=== PATIENT | female | born 1995 | race Caucasian/White ===

== ENCOUNTER 2024-09-29 05:48 | Day surgery (SDC) | payer OTHER ==
[2024-09-27 11:45] LABS: BASO % 0.3 % (0.1-1.2); EOS # 0.12 (0.04-0.54); EOS % 1.1 % (0.7-7.0); LYMPH # 2.34 (1.18-3.74); LYMPH % 20.5 % (19.3-53.1); MEAN PLATELET VOLUME 9.40 fl (9.4-12.4); MONO # 0.46 (0.24-0.82); MONO % 4.0 % (4.7-12.5); NEUT # 8.41 (1.56-6.13); NEUT % 73.8 % (34.0-71.1); RED CELL DISTRIBUTION WIDTH 13.9 % (11.6-14.4)
[2024-09-27 12:11] LABS: INR 1.05
[2024-09-27 12:27] LABS: ALT/SGPT 16.0 U/L (12-78); AST/SGOT 9.0 U/L (15-37); BILIRUBIN TOTAL 0.31 mg/dL (0.3-1.2); BUN CREA RATIO 20.0 (7.0-25.0); CREATININE SERUM 0.35 mg/dL (0.55-1.02); GFR 221.72; GLOBULINA 3.6 G/DL (2.4-3.5); GLUCOSE FASTING 75.0 mg/dL (65-100); OSMOLALITY SERUM 280.0 MOSM/KG (275-295); TSH 1.94 uIU/mL (0.358-3.74)
[~2024-09-29 05:48] MED LIST: SYNTHROID75 MCG PO
[2024-09-29] MEDS ORDERED: POVIDONE-IODINE 118 ML BOTT TOP ONE (07:15)
[2024-09-29] MEDS ORDERED: CITRIC ACID/SODIUM CITRATE 30 ML BLIST.PACK PO ONE (07:15)
[2024-09-29 15:00] VITALS: BP 131/70; O2SAT 100
== END 2024-09-29 13:15 | disposition home or self-care (01) ==
LOC: CIR.AMB 05:48
PROVIDERS: ATTEND Obstetrics & Gynecology Maternal & Fetal Medicine
DX: O34.32 Maternal care for cervical incompetence, second trimester (principal); N84.1 Polyp of cervix uteri

== ENCOUNTER 2025-01-10 17:32 | Inpatient (IN) | payer OTHER ==
[~2025-01-10] VITALS: Ht 170.2 cm; Wt 93.9 kg
[~2025-01-10 17:32] MED LIST changes: +PRENATABS RX T1 EACH PO
[2025-01-10 17:35] VITALS: BP 118/75
[2025-01-10] MEDS ORDERED: NIFEDIPINE 30 MG TAB.SA.OSM PO ONE (18:02)
[2025-01-10] MEDS ORDERED: BETAMETHASONE ACETATE,SOD PHOS 30 MG/5 ML ML ONE (18:02)
[2025-01-10] MEDS ORDERED: CEFOXITIN SODIUM 2,000 MG VIAL IV ONE (18:03)
[2025-01-10] MEDS ORDERED: BETAMETHASONE ACETATE,SOD PHOS 30 MG/5 ML ML IM ONE (18:17)
[2025-01-10] MEDS ORDERED: NIFEDIPINE20 MG PO (18:37)
[2025-01-10] MEDS ORDERED: ENDOMETRIN100 MG VAG (18:38)
[2025-01-10] MEDS ORDERED: CEFOXITIN SODIUM 2,000 MG VIAL IV SCH (18:40)
[2025-01-10] MEDS ORDERED: NIFEDIPINE 30 MG TAB.SA.OSM PO SCH (18:41)
[2025-01-10 19:16] LABS: BASO % 0.2 % (0.1-1.2); EOS # 0.20 (0.04-0.54); EOS % 1.5 % (0.7-7.0); LYMPH # 2.53 (1.18-3.74); LYMPH % 19.4 % (19.3-53.1); MEAN PLATELET VOLUME 10.20 fl (9.4-12.4); MONO # 0.55 (0.24-0.82); MONO % 4.2 % (4.7-12.5); NEUT # 9.70 (1.56-6.13); NEUT % 74.4 % (34.0-71.1); RED CELL DISTRIBUTION WIDTH 14.0 % (11.6-14.4)
[2025-01-10 19:35] LABS: INR 0.99
[2025-01-10 19:49] LABS: ALT/SGPT 19.0 U/L (12-78); AST/SGOT 18.0 U/L (15-37); BILIRUBIN TOTAL 0.24 mg/dL (0.3-1.2); BUN CREA RATIO 22.0 (7.0-25.0); CREATININE SERUM 0.36 mg/dL (0.55-1.02); GFR 214.63; GLOBULINA 3.8 G/DL (2.4-3.5); GLUCOSE FASTING 82.0 mg/dL (65-100); OSMOLALITY SERUM 277.0 MOSM/KG (275-295); TSH 2.2 uIU/mL (0.358-3.74)
[2025-01-10 20:18] VITALS: BP 125/77
[2025-01-10 23:19] VITALS: BP 107/67
[2025-01-11 03:22] VITALS: BP 108/69
[2025-01-11] MEDS ORDERED: NIFEDIPINE 30 MG TAB.SA.OSM PO SCH (05:00)
[2025-01-11] MEDS ORDERED: LEVOTHYROXINE SODIUM 75 MCG TABLET PO SCH (06:00)
[2025-01-11 07:14] VITALS: BP 112/71
[2025-01-11] MEDS ORDERED: CEFOXITIN SODIUM 2,000 MG VIAL IV ONE ×3 (07:17→23:52)
[2025-01-11] MEDS ORDERED: MAGNESIUM SULFATE IN WATER 500 ML IV SCH (11:00)
[2025-01-11] MEDS ORDERED: MAGNESIUM SULFATE IN WATER 100 ML IV NR (11:00)
[2025-01-11 11:23] VITALS: BP 113/68
[2025-01-11 15:26] VITALS: BP 107/67; O2SAT 98
[2025-01-11] MEDS ORDERED: BETAMETHASONE ACETATE,SOD PHOS 30 MG/5 ML ML IM NR (18:00)
[2025-01-11] MEDS ORDERED: BETAMETHASONE ACETATE,SOD PHOS 30 MG/5 ML ML ONE (18:08)
[2025-01-11] MEDS ORDERED: PATIENTS OWN MEDICATION (MEDICAMENTO EN PISO NEVERA) VAG SCH (21:00)
[2025-01-11 21:20] VITALS: BP 109/69; O2SAT 99
[2025-01-11 23:42] VITALS: BP 114/70
[2025-01-12 03:49] VITALS: BP 105/68
[2025-01-12] MEDS ORDERED: LEVOTHYROXINE SODIUM 75 MCG TABLET PO ONE (05:42)
[2025-01-12 07:02] VITALS: BP 109/68; O2SAT 100
[2025-01-12] MEDS ORDERED: CEFOXITIN SODIUM 2,000 MG VIAL IV ONE (08:40)
[2025-01-12] MEDS ORDERED: NIFEDIPINE 60 MG TAB.SA.OSM PO NR (13:00)
[2025-01-12 13:30] VITALS: BP 120/72
[2025-01-12 16:00] VITALS: BP 101/61
[2025-01-12] MEDS ORDERED: NIFEDIPINE 60 MG TAB.SA.OSM PO SCH (21:00)
[2025-01-13 01:23] VITALS: BP 90/60
[2025-01-13 08:00] VITALS: BP 116/67
[2025-01-13] MEDS ORDERED: DOCUSATE SODIUM 100MG CAP PO STA (15:25)
[2025-01-13 15:57] VITALS: BP 95/54
[2025-01-13] MEDS ORDERED: ENOXAPARIN SODIUM 40 MG/0.4 ML SYRINGE SUBCUTANEO STA (16:21)
[2025-01-14] VITALS: BP 104/66
[2025-01-14] MEDS ORDERED: DOCUSATE SODIUM 100MG CAP PO SCH (09:00)
[2025-01-14 09:29] VITALS: BP 112/69
[2025-01-14] MEDS ORDERED: ENOXAPARIN SODIUM 40 MG/0.4 ML SYRINGE SUBCUTANEO SCH (17:00)
[2025-01-14 17:19] VITALS: BP 113/70
[2025-01-14 23:56] VITALS: BP 96/60
[2025-01-15 09:00] VITALS: BP 115/73
[2025-01-15 17:30] VITALS: BP 119/77
[2025-01-16] VITALS: BP 108/67
[2025-01-16 08:53] VITALS: BP 106/68
[2025-01-16 15:00] VITALS: BP 115/72
[2025-01-17] VITALS: BP 109/67
[2025-01-17 08:26] VITALS: BP 104/69
[2025-01-17 16:24] VITALS: BP 118/76
[2025-01-18 00:04] VITALS: BP 93/54
[2025-01-18 07:25] VITALS: BP 106/69
[2025-01-18] MEDS ORDERED: LACTULOSE 20 G/30 ML BLIST.PACK PO NR (10:00)
[2025-01-18] MEDS ORDERED: MAGNESIUM HYDROXIDE 30 ML BLIST.PACK PO NR (10:00)
[2025-01-18] MEDS ORDERED: MINERAL OIL 30 ML BLIST.PACK PO NR (10:00)
[2025-01-18 16:00] VITALS: BP 114/71
[2025-01-19 01:15] VITALS: BP 92/60
[2025-01-19 08:00] VITALS: BP 100/64
[2025-01-19] MEDS ORDERED: POLYETHYLENE GLYCOL 3350 17 GM BLIST.PACK PO SCH (09:00)
[2025-01-19 16:34] VITALS: BP 90/65
[2025-01-19] MEDS ORDERED: TERBUTALINE SULFATE 1 MG/ML AMPUL ONE (19:32)
[2025-01-19] MEDS ORDERED: TERBUTALINE SULFATE 1 MG/ML AMPUL SUBCUTANEO STA (19:37)
[2025-01-20] VITALS: BP 90/65
[2025-01-20 08:00] VITALS: BP 111/70
[2025-01-20 17:02] VITALS: BP 127/79
[2025-01-21] VITALS: BP 95/58
[2025-01-21 08:48] VITALS: BP 114/77
[2025-01-21 16:45] VITALS: BP 119/79
[2025-01-21] MEDS ORDERED: TERBUTALINE SULFATE 1 MG/ML AMPUL SUBCUTANEO NR (19:15)
[2025-01-22 00:45] VITALS: BP 93/58
[2025-01-22 09:50] VITALS: BP 108/68
[2025-01-22 16:00] VITALS: BP 120/81
[2025-01-23] VITALS: BP 95/61
[2025-01-23 09:49] VITALS: BP 120/79
[2025-01-23 16:06] VITALS: BP 109/71
[2025-01-24 01:10] VITALS: BP 90/55
[2025-01-24 09:37] VITALS: BP 110/72
[2025-01-24 16:01] VITALS: BP 110/66
[2025-01-25 00:49] VITALS: BP 97/67
[2025-01-25 08:07] VITALS: BP 107/69
[2025-01-25 15:06] VITALS: BP 111/72
[2025-01-26 00:34] VITALS: BP 97/60
[2025-01-26 08:01] VITALS: BP 108/69
[2025-01-26 16:18] VITALS: BP 107/66
[2025-01-27] VITALS: BP 90/51
[2025-01-27 08:00] VITALS: BP 119/73
[2025-01-27] MEDS ORDERED: CITRIC ACID/SODIUM CITRATE 30 ML BLIST.PACK PO SCH (09:39)
[2025-01-27] MEDS ORDERED: TERBUTALINE SULFATE 1 MG/ML AMPUL SUBCUTANEO NR (11:00)
[2025-01-27 16:31] VITALS: BP 102/60
[2025-01-28 00:30] VITALS: BP 102/64
[2025-01-28 08:48] VITALS: BP 91/65
[2025-01-28] MEDS ORDERED: CITRIC ACID/SODIUM CITRATE 30 ML BLIST.PACK PO PRN (13:31)
[2025-01-28 16:00] VITALS: BP 103/68
[2025-01-29] VITALS: BP 102/41
[2025-01-29 08:10] VITALS: BP 92/55
[2025-01-30 00:10] VITALS: BP 104/64
[2025-01-30 08:00] VITALS: BP 107/62
[2025-01-30 16:17] VITALS: BP 95/61
[2025-01-31 00:13] VITALS: BP 92/60
[2025-01-31 10:36] VITALS: BP 92/58
[2025-01-31 16:36] VITALS: BP 102/62
[2025-02-01] VITALS: BP 91/57
[2025-02-01 08:47] VITALS: BP 105/63
[2025-02-01 16:11] VITALS: BP 98/61
[2025-02-02 00:54] VITALS: BP 96/63
[2025-02-02 09:26] VITALS: BP 113/70
== END 2025-02-02 14:27 | disposition home or self-care (01) | DRG 831 ==
LOC: LDR → OB/GYN 01-12 11:09
PROVIDERS: ADMIT Obstetrics & Gynecology Maternal & Fetal Medicine; ATTEND Obstetrics & Gynecology Maternal & Fetal Medicine
PROC: 4A1HXCZ Monitoring of Products of Conception, Cardiac Rate, External Approach (ICD-10-PCS; principal; 2025-01-10)
PROC: BY4FZZZ Ultrasonography of Third Trimester, Single Fetus (ICD-10-PCS; 2025-01-17)
PROC: BU4CZZZ Ultrasonography of Uterus and Ovaries (ICD-10-PCS; 2025-01-17)
PROC: BY4FZZZ Ultrasonography of Third Trimester, Single Fetus (ICD-10-PCS; 2025-01-24)
PROC: BU4CZZZ Ultrasonography of Uterus and Ovaries (ICD-10-PCS; 2025-01-24)
PROC: BY4FZZZ Ultrasonography of Third Trimester, Single Fetus (ICD-10-PCS; 2025-01-31)
PROC: BY4FZZZ Ultrasonography of Third Trimester, Single Fetus (ICD-10-PCS; 2025-01-31)
DX: O34.33 Maternal care for cervical incompetence, third trimester (principal); O60.03 Preterm labor without delivery, third trimester; O26.843 Uterine size-date discrepancy, third trimester; O36.8130 Decreased fetal movements, third trimester, not applicable or unspecified; Z3A.28 28 weeks gestation of pregnancy; O99.283 Endocrine, nutritional and metabolic diseases complicating pregnancy, third trimester; E03.9 Hypothyroidism, unspecified

== ENCOUNTER 2025-02-28 15:25 | Outpatient (CLI) | payer OTHER ==
[~2025-02-28 15:25] MED LIST changes: +ENDOMETRIN100 MG VAG; +NIFEDIPINE20 MG PO
== END 2025-02-28 17:17 | disposition home or self-care (01) ==
LOC: NST 15:25
PROVIDERS: ATTEND Obstetrics & Gynecology
DX: Z34.83 Encounter for supervision of other normal pregnancy, third trimester (principal)